=== PATIENT | male | born 1995 | race African-American/Black ===

== ENCOUNTER 2022-11-07 12:11 | Emergency (ER) | payer MEDICAID, SELFPAY ==
--- NOTE | ~2022-11-07 | XR_ITS ---
EXAMINATION: XR CHEST 2 VIEW CLINICAL INFORMATION: Shortness of breath and wheezing COMPARISON: None TECHNIQUE: PA and lateral views of the chest obtained. FINDINGS: The lungs are clear. There are no pleural effusions. The cardiomediastinal silhouette is normal. XR/XR chest 2V IMPRESSION: No acute cardiopulmonary disease.
[2022-11-07 12:31] VITALS: BP 128/75; PULSE 95; RESP 18; TEMP 38.1; O2SAT 97; BMI 16.3
--- NOTE | 2022-11-07 12:33 | ED.FEVER ---
HPI - Fever General Chief Complaint: General Medical Stated Complaint: Not Feeling Well Time Seen by Provider: 11/07/22 12:41 Source: patient, RN notes reviewed and old records reviewed Mode of arrival: ambulatory Limitations: no limitations History of Present Illness HPI Narrative: 26 yo male w/no sig PMHx presents to ED c/o sore throat and odynophagia x4 days, w/ fever, chills, body aches, sinus pressure, SOB x1 day. Has taken Robitussin, last dose 11AM this morning. +Sick contacts. Denies headache, rhinorrhea, cough, otalgia, chest pain, abdominal pain, nausea, vomiting, diarrhea, constipation, leg swelling. MD elicited complaint: fever and malaise Onset (ago): day(s) Related Data Allergies Allergy/AdvReac Type Severity Reaction Status Date / Time banana [BANANA] Allergy Unknown ANAPHYLAXIS Verified 11/07/22 13:00 Review of Systems Review of Systems: Constitutional: No Weight loss, + Fever, + Chills, + Malaise, + Body aches ENT/Mouth: No Ear Pain, No Nasal Congestion, + Sinus Pain, No Hoarseness, + sore throat, No Rhinorrhea, + odynophagia Cardiovascular: No Chest Pain, + SOB Respiratory: No Cough, No Sputum, No Wheezing Gastrointestinal: No Nausea, No Vomiting, No Diarrhea, No Constipation, No Abdominal pain Genitourinary: No Dysuria, No Urinary Frequency, No Urgency, No Flank Pain Musculoskeletal: No joint pain, + Myalgias, No Joint Swelling Skin: No Skin Lesions, No rash Neuro: No Headache, No Weakness Yes all other systems are reviewed and are negative Constitutional: Constitutional: Reports as per [facility] Past Medical History Attestation statement: The following information was validated with the patient. Source: old records reviewed Social History Social History Alcohol intake: current Alcohol intake frequency: a few times a month Smoked in Last 30 Days: No Substance Use Type: Marijuana Substance Use Frequency: Daily Advance Directives: No Physical Exam Vital Signs: Vital Signs: Last Vital Signs Temp 98.4 F 11/07/22 14:18 Pulse 95 11/07/22 12:31 Resp 18 11/07/22 12:31 BP 128/75 11/07/22 12:31 Pulse Ox 97 11/07/22 12:31 O2 Del Method Room Air 11/07/22 12:31 BMI result Body Mass Index 16.3 Const: General: cooperative, healthy appearing, no acute distress, alert and awake Orientation/consciousness: patient oriented x3 Limitations: no limitations HEENT: Head: Yes normal to inspection and Yes atraumatic Ears: hearing grossly normal bilaterally, TM's normal bilaterally and EAC's normal General nose exam: Normal external nose present and No nasal discharge present Face and sinus: Yes normal facial exam and Yes sinus tenderness Mouth: Normal oral and palatal mucosa present Throat: No tonsils normal (mild swelling, no exudates), Yes uvula midline, Yes posterior oropharynx abnormal (Erythematous), No uvula laterally displaced and No uvular edema Eyes: General: appearance normal, both eyes and all related structures EOM: EOMs intact bilaterally Neck: Neck: Yes normal visual inspection, Yes no meningeal signs and Yes lymphadenopathy (+submandibular) Resp: Effort & Inspection: normal respiratory effort, able to speak in complete sentences, no grunting and no respiratory distress Auscultation: clear to auscultation bilaterally, no crackles and no wheezes Cardio: Rate: regular rate Rhythm: regular rhythm Heart sounds: S1 normal heart sound present and S2 normal heart sound present GI: Inspection: Yes normal to inspection Palpation (GI): Soft to palpation, nontender, no guarding and not rigid Skin: Rashes: no rashes Wounds: no wounds Neuro: General: patient oriented x3, tone normal and no meningeal signs Cranial nerves: Yes CN's II-XII intact bilaterally Gait exam (Neuro): Normal gait present Extrem: General: Yes normal to inspection Course Course Course Narrative: This is an RME: Additional HPI, ROS, PE not included below will be deferred to primary provider. This is a [id number], with no known medical problems, presenting to the emergency department with complaints of sore throat x 3 days. No tylenol ibuprofen at home. Took robitussin last night with minimal relief. Plan: strep, COVID/FLU/RSV. Found to have fever of 100.5, given tylenol PO in triage. 1405--COVID positive XR chest 2V IMPRESSION: No acute cardiopulmonary disease. Results discussed with patient including worrisome signs and symptoms and strict return precautions, and when to return to the emergency department. They verbalized understanding and feel safe for discharge at this time. Medications Administered Discontinued Medications Generic Name Dose Route Start Last Admin Trade Name Flory PRN Reason Stop Dose Admin Acetaminophen 975 mg 11/07/22 12:36 11/07/22 12:39 Acetaminophen 325 Mg Tablet PO 11/07/22 12:37 975 mg ONCE ONE Administration Medical Decision Making Medical Decision Making MDM Narrative: 26 yo male w/no sig PMHx presents to ED c/o sore throat and odynophagia x4 days, w/ fever, chills, body aches, sinus pressure, SOB x1 day. On exam low-grade temp 100.5 degrees, NAD, nontoxic appearing, posterior oropharynx with mild erythema, uvula midline, talking in complete sentences, no exudate, lungs CTA. Concern for viral illness vs pharyngitis vs bronchitis. No evidence of LEACH TANK TENDER/retropharyngeal abscess. Unlikely ACS/PE plan: Viral testing, CXR, rapid strep Please refer to course for remaining clinical decision making, interpretation of labs/imaging results, and discussions with consultants and/or family members. Differential Diagnosis Differential Diagnoses: The differential diagnosis associated with the presentation includes As above Lab Data MDM Lab Attestation statement: I reviewed the patient's lab results. Labs: Lab Results 11/07/22 Range/Units 12:50 Influenza Type A (PCR) NEGATIVE (Negative) Influenza Type B (PCR) NEGATIVE (Negative) RSV RNA Qual (PCR) NEGATIVE (Negative) SARS-CoV-2 RNA (RT-PCR) POSITIVE A (Negative) S. pyogenes GrpA JORDYN Negative (Negative) Radiology Impression Discussion of test interpretation with radiology: I have reviewed the radiologist's reading. External Record Review External record reviewed: Inpatient record, Office record, Outpatient record, Prior outpatient labs, Prior outpatient radiology, Primary care record and Outside ED record Tests considered The following testing was considered but not selected: As above Prescription Management I considered prescription management with: Pain Medication Discharge Plan Discharge Clinical Impression: COVID-19 Patient Disposition: Home, Self-Care Instructions: COVID-19 (Coronavirus Disease 2019) (ED) Additional Instructions: At this time you will be okay for discharge. Please self isolate for 5 days. Do not expose yourself to others. You may not go to work or school. Please continue to follow cold instructions and wash your hands frequently. You may take Tylenol / Motrin as directed on the bottle for pain or fever. If you have constant or persistent shortness of breath, fever unresolved with medications, chest pain, or your unable to eat or drink please return to the ED CDC Guidelines for home isolation: - Stay away from others - WEAR A MASK if you are sick AND STAY HOME - Cover your mouth and nose with a tissue when you cough or sneeze. Dispose of tissues in a lined trash can and wash your hands immediately with soap and water for at least 20 seconds. If soap and water are not available, clean hands with alcohol-based hand electric engine mechanic that contains at least 60% alcohol. - Clean your hands often with soap and water for at least 20 seconds - Avoid touching your eyes, nose and mouth with unwashed hands - Do not share dishes, drinking glasses, cups, eating utensils, towels, or bedding with other people in your home. After using these items, wash them thoroughly with soap and water or put in the frame stylist. - Clean high-touch surfaces in your isolation area ( sick room and bathroom) every day; let a caregiver clean and disinfect high-touch surfaces in other areas of the home. Clean the area or item with soap and water or another detergent if it is dirty. Then, use a household disinfectant. - Limit contact with pets and animals: If you must care for a pet, wash your hands before and after interacting with them) Referrals: Physician,None [Primary Care Provider] - Stand Alone Forms: Work/School Release Interventions: ED Discharge Assessment Last Done: 11/07/22 14:14 Discharge Date/Time: 11/07/22 14:14
[2022-11-07] MEDS: Acetaminophen 325 MG TABLET 975 MG PO (12:39)
--- NOTE | 2022-11-07 12:54 | PC.NURSE ---
aox4. reports chills. labs sent. no resp distress.
[2022-11-07 13:08] LABS: IDNOW Serial# 6674DD1D; Strep A Nucleic Acid Negative (Negative)
[2022-11-07 13:40] LABS: Influenza A PCR NEGATIVE (Negative); Influenza B PCR NEGATIVE (Negative); Resp Syncy Virus RNA Qual PCR NEGATIVE (Negative); SARS COV2 PCR INHOUSE POSITIVE (Negative)
[2022-11-07 14:18] VITALS: TEMP 36.9
== END 2022-11-07 14:14 | disposition home or self-care (01) ==
PROVIDERS: Physician Assistant Medical; Emergency Provider Emergency Medicine
DX: U07.1 COVID-19 (principal)
CPT/HCPCS: 0241U; 71046; 87651; 99283; 99284